=== PATIENT | female | born 1980 | race African-American/Black ===

== ENCOUNTER 2019-03-14 19:12 | Emergency (ER) | payer SELFPAY ==
[~2019-03-14] VITALS: Ht 167.6 cm; Wt 89.0 kg
[2019-03-14 20:16] VITALS: BP 130/76
== END 2019-03-15 01:13 | disposition left against medical advice (07) ==
LOC: ER 19:21
DX: Z53.21 Procedure and treatment not carried out due to patient leaving prior to being seen by health care provider (principal)

== ENCOUNTER 2019-05-26 11:18 | Emergency (ER) | payer MEDICAID ==
[~2019-05-26] VITALS: Ht 167.6 cm; Wt 84.0 kg
[2019-05-26 11:50] VITALS: BP 130/85
== END 2019-05-26 12:55 | disposition home or self-care (01) ==
LOC: ER 11:18
DX: O99.89 Other specified diseases and conditions complicating pregnancy, childbirth and the puerperium (principal); B34.9 Viral infection, unspecified; O09.522 Supervision of elderly multigravida, second trimester; Z3A.16 16 weeks gestation of pregnancy
CPT/HCPCS: 99283

== ENCOUNTER 2019-09-29 15:14 | Emergency (ER) | payer MEDICAID ==
[~2019-09-29] VITALS: Ht 167.6 cm; Wt 87.0 kg
[2019-09-29] MEDS ORDERED: IBUPROFEN 600MG TABLET PO ONE (15:45)
[2019-09-29] MEDS ORDERED: ACETAMINOPHEN 325MG TABLET PO ONE (15:45)
[2019-09-29] MEDS ORDERED: ONDANSETRON HCL 4MG/2ML INJ IV STA (16:15)
[2019-09-29] MEDS ORDERED: SODIUM CHLORIDE 0.9% 1,000 ML IV ONE (16:15)
[2019-09-29 16:46] LABS: BASOPHILS % 0.2 % (0.0-2.0); EOSINOPHILS % 0.6 % (0.0-5.0); HEMATOCRIT. 28.7 % (36.0-48.0); HEMOGLOBIN. 9.8 g/dL (12.0-16.0); LYMPHOCYTES % 25.9 % (20.0-50.0); MEAN CORPUSCULAR HEMOGLOBIN 29.5 pg (28.0-32.0); MEAN CORPUSCULAR VOLUME 86.5 fL (81.0-99.0); NEUTROPHILS % 66.3 % (40.0-76.0); PLATELET 285 x1000/uL (130-400); RED BLOOD CELL COUNT 3.31 mill/uL (4.2-5.4); RED CELL DISTRIBUTION WIDTH 14.3 % (11.6-14.6)
[2019-09-29 16:52] LABS: CHLORIDE 110 mEq/L (98-107)
[2019-09-29 16:58] LABS: HCG SCREEN POSITIVE
[2019-09-29 16:59] LABS: PROTHROMBIN TIME 10.1 sec (9.6-11.0)
[2019-09-30 00:45] VITALS: BP 128/72
== END 2019-09-30 01:12 | disposition left against medical advice (07) ==
LOC: ER 15:14 → CANBEDREQ 09-30 01:36
DX: O26.899 Other specified pregnancy related conditions, unspecified trimester (principal); R07.9 Chest pain, unspecified; Z3A.00 Weeks of gestation of pregnancy not specified; R51 Headache; R42 Dizziness and giddiness
CPT/HCPCS: 36415; 71045; 76705; 76815; 80053; 83690; 83880; 84484; 84703; 85025; 85610; 93005; 96361; 96374; 99285; J2405; J7030

== ENCOUNTER 2021-06-16 16:47 | Emergency (ER) | payer MEDICAID, MEDICARE ==
[~2021-06-16] VITALS: Ht 167.6 cm; Wt 84.0 kg
[2021-06-16 16:49] VITALS: BP 107/83
[2021-06-16 17:39] LABS: CLARITY URINE CLEAR (CLEAR); COLOR URINE YELLOW (YELLOW); KETONES URINE TRACE (NEGATIVE); LEUKOCYTE ESTERASE URINE TRACE (NEGATIVE); NITRITE URINE NEGATIVE (NEGATIVE); OCCULT BLOOD URINE NEGATIVE (NEGATIVE); PH URINE 5.5 (4.5-8.0); PROTEIN URINE NEGATIVE (NEGATIVE); SPECIFIC GRAVITY URINE 1.028 (1.005-1.030); UROBILINOGEN URINE 0.2 E.U./dL (0.2-1.0)
[2021-06-16] MEDS ORDERED: DOXY100T2 MT (18:03)
[2021-06-16] MEDS ORDERED: METR500T MT (18:31)
[2021-06-19 19:06] LABS: NEISSERIA GONORRHOEAE NAA Negative (Negative)
== END 2021-06-16 18:39 | disposition home or self-care (01) ==
LOC: ER 16:47
DX: N76.0 Acute vaginitis (principal)
CPT/HCPCS: 81003; 81025; 87210; 87491; 87591; 99283

== ENCOUNTER 2022-07-24 20:53 | Emergency (ER) | payer MEDICAID, MEDICARE ==
[~2022-07-24] VITALS: Ht 167.6 cm; Wt 101.6 kg
[~2022-07-24 20:53] MED LIST: DOXY100T2 MT; METR500T MT
[2022-07-24 21:37] VITALS: BP 154/86
== END 2022-07-25 01:15 | disposition home or self-care (01) ==
LOC: ER 20:53
DX: B34.9 Viral infection, unspecified (principal); Z20.822 Contact with and (suspected) exposure to COVID-19; Z98.890 Other specified postprocedural states
CPT/HCPCS: 81025; 87070; 87426; 87430; 87804; 99283; C9803

== ENCOUNTER 2022-11-26 15:05 | Emergency (ER) | payer MEDICAID, MEDICARE, OTHER ==
[~2022-11-26] VITALS: Ht 165.1 cm; Wt 91.0 kg
[2022-11-26 15:09] VITALS: BP 186/101; PULSE 87; RESP 18; O2SAT 100
[2022-11-26] MEDS ORDERED: ONDANSETRON HCL 4MG/2ML INJ IV STA (15:25)
[2022-11-26] MEDS ORDERED: MECLIZINE 25MG TABLET PO ONE (15:30)
[2022-11-26] MEDS ORDERED: SODIUM CHLORIDE 0.9% 1,000 ML IV ONE (15:30)
[2022-11-26] MEDS ORDERED: MECLIZINE 12.5MG TABLET PO NR (15:45)
[2022-11-26 16:13] LABS: BASOPHILS % 0.5 % (0.0-2.0); EOSINOPHILS % 0.9 % (0.0-5.0); HEMOGLOBIN. 12.3 g/dL (12.0-16.0); LYMPHOCYTES % 34.3 % (20.0-50.0); MEAN CORPUSCULAR HEMOGLOBIN 28.6 pg (28.0-32.0); MEAN CORPUSCULAR HGB CONC 34.2 g/dL (31.0-37.0); MEAN CORPUSCULAR VOLUME 83.6 fL (81.0-99.0); MEAN PLATELET VOLUME 7.3 fl (7.4-10.4); MONOCYTES % 6.7 % (2.0-8.0); NEUTROPHILS % 57.6 % (40.0-76.0); PLATELET 310 x1000/uL (130-400); RED CELL DISTRIBUTION WIDTH 14.4 % (11.6-14.6); WHITE BLOOD COUNT 9.1 x1000/uL (4.5-11.0)
[2022-11-26 16:20] LABS: PROTHROMBIN TIME 11.2 sec (9.6-11.0)
[2022-11-26 16:27] LABS: CHLORIDE 106 mEq/L (98-107); INDEX HEMOLYSI 1 (1-3); INDEX ICTERIC 1 (1-4); INDEX LIPEMIC 1 (1-3); POTASSIUM 3.2 mEq/L (3.5-5.1); SODIUM 141 mEq/L (136-145)
[2022-11-26 16:36] LABS: ALANINE AMINOTRANSFERASE 15 IU/L (13-61); ALBUMIN 3.7 g/dL (3.4-5.0); ASPARTATE AMINOTRANSFERASE 12 IU/L (15-37); BILIRUBIN TOTAL 0.4 mg/dL (0.1-1.0); CALCIUM 8.9 mg/dL (8.5-10.1); CARBON DIOXIDE 29 mEq/L (21-32); CREATININE 0.6 mg/dL (0.6-1.3); GLUCOSE 104 mg/dL (70-105); NT PRO B-TYPE NATRIURETIC PEP 19 pg/mL (5-125); PROTEIN TOTAL 7.4 g/dL (6.0-8.3); TROPONIN I HIGH SENSITIVITY 5 ng/L (<54); UREA NITROGEN BLOOD 7 mg/dL (7-21)
[2022-11-26] MEDS ORDERED: ONDANSETRON HCL 4MG/2ML INJ IV NR (17:30)
[2022-11-26] MEDS ORDERED: ONDA4TAB50 MT (18:03)
[2022-11-26 18:11] LABS: HCG SCREEN NEGATIVE
[2022-11-26 18:15] LABS: TROPONIN I HIGH SENSITIVITY 4 ng/L (<54)
[2022-11-26] MEDS ORDERED: POTA-354 MT (19:58)
== END 2022-11-26 21:15 | disposition home or self-care (01) ==
LOC: ER 15:30
DX: R42 Dizziness and giddiness (principal); R11.2 Nausea with vomiting, unspecified; Z98.890 Other specified postprocedural states
CPT/HCPCS: 80053; 84703; 83880; 85025; 85610; 84484; 36415; 71045; 93005; 96360; 99285; J8597; J2405; J7030; Z7610